=== PATIENT | male | born 1995 | race Hispanic/Latino ===

== ENCOUNTER 2022-07-06 20:06 | Inpatient (IN) | payer OTHER ==
[~2022-07-06 20:06] MED LIST: Iopamidol-370 76% 500 ML MDV (1 ML CHARGE) ONE
[2022-07-06] MEDS ORDERED: Morphine 4 MG/ML VIAL ONE (20:20)
[2022-07-06] MEDS ORDERED: Boostrix 0.5 ML (Tdap) VIAL (>/=7 yrs of age) ONE (20:20)
[2022-07-06] MEDS ORDERED: CEFAZOLIN 2 GM VIAL ONE (20:20)
[2022-07-06 20:31] LABS: #Basophils 0.1 thou/uL (0.0-0.2); #Eosinphils 0.2 thou/uL (0.0-0.7); #Lymphocytes 5.1 thou/uL (1.20-3.40); #Monocytes 0.6 thou/uL (0.11-0.59); #Neutrophils 4.7 thou/uL (1.40-6.50); %Basophils 0.7 % (0.0-1.0); %Eosinophils 1.5 % (0.0-10.0); %Monocytes 5.6 % (0.0-10.0); %Neutrophils 44.2 % (42.0-75.0); Hemoglobin 15.3 g/dL (14.0-18.0); Mean Corpuscular HGB CONC 35.2 g/dL (32.0-36.0); Mean Corpuscular Hemoglobin 32.9 pg (27.0-31.0); Mean Corpuscular Volume 93.7 fl (78.0-98.0); Mean Platelet Volume 6.9 fL (7.4-10.4); Platelet Count 275 10x3/uL (130-400); RBC Distribution Width 11.1 % (11.5-14.5); Red Blood Cell (RBC) Count 4.66 mill/uL (4.70-6.10); White Blood Cell (WBC) Count 10.6 10x3/uL (4.8-10.8)
[2022-07-06 20:38] LABS: Prothrombin Time 13.3 sec (12.0-14.7)
[2022-07-06 20:48] LABS: ALT (SGPT) 38 U/L (8-55); AST (SGOT) 58 U/L (5-34); Acetaminophen Less than 10.0 mcg/mL (10.0-30.0); Albumin 4.5 g/dL (3.5-5.0); Alcohol Less than 10 mg/dL (Less than 10); Alkaline Phosphatase 79 U/L (40-110); Anion Gap 17 mmol/L (10-20); BUN (Urea Nitrogen) 18 mg/dL (8.9-20.6); Bilirubin, Total 0.3 mg/dL (0.2-1.2); Calc. Creatinine Clearance 0 mL/min (70-130); Carbon Dioxide 21 mmol/L (22-29); Chloride 104 mmol/L (98-107); Estimated GFR 89; Globulin 2.4 g/dL (2.4-3.5); Glucose 144 mg/dL (70-105); Lipase 23 U/L (8-78); Potassium 3.8 mmol/L (3.5-5.1); Protein, Total 6.9 g/dL (6.0-8.3); Salicylate Less than 8.0 mg/dL (15.0-30.0); Sodium 138 mmol/L (136-145)
[2022-07-06] MEDS ORDERED: Morphine 2 MG/ML VIAL ONE (22:22)
[2022-07-06] MEDS ORDERED: Dextrose 50% Abboject 50 ML SYRINGE SLOW IVP PRN (23:14)
[2022-07-06] MEDS ORDERED: TETANUS, DIPHTHERIA TOX,ADULT (TDVAX) 0.5 ML VIAL IM ONE (23:14)
[2022-07-06] MEDS ORDERED: Morphine 2 MG/ML VIAL SLOW IVP PRN (23:14)
[2022-07-06] MEDS ORDERED: Ondansetron ODT 4 MG TAB PO PRN (23:14)
[2022-07-06] MEDS ORDERED: Dextrose 5% in Water 1,000 ML IV PRN (23:14)
[2022-07-06] MEDS ORDERED: Ipratropium/Albuterol 3 ML NEB NEB PRN (23:14)
[2022-07-06] MEDS ORDERED: Ondansetron PF 4 MG/2 ML Vial IVP PRN (23:14)
[2022-07-06] MEDS ORDERED: Sodium Chloride 0.9% 1,000 ML IV SCH (23:15)
[2022-07-07] MEDS: Morphine 4 MG/ML VIAL SLOW IVP PRN ×2 (00:08→03:09)
[2022-07-07] MEDS: traMADol HCl 50 MG TAB PO SCH ×4 (00:12→17:16)
[2022-07-07] MEDS: Acetaminophen 500 MG TAB PO SCH ×4 (00:12→17:17)
[2022-07-07] MEDS: Cyclobenzaprine 10 MG TAB PO PRN ×3 (01:28→21:36)
[2022-07-07 03:50] VITALS: BMI 26.2
[2022-07-07 06:57] LABS: #Lymphocytes 1.1 thou/uL (1.20-3.40); #Neutrophils 11.9 thou/uL (1.40-6.50); %Basophils 0.1 % (0.0-1.0); %Eosinophils 0.2 % (0.0-10.0); %Monocytes 6.9 % (0.0-10.0); %Neutrophils 84.8 % (42.0-75.0); Hemoglobin 13.1 g/dL (14.0-18.0); Mean Corpuscular HGB CONC 35.6 g/dL (32.0-36.0); Mean Corpuscular Hemoglobin 33.3 pg (27.0-31.0); Mean Corpuscular Volume 93.6 fl (78.0-98.0); Mean Platelet Volume 6.9 fL (7.4-10.4); Platelet Count 213 10x3/uL (130-400); Red Blood Cell (RBC) Count 3.93 mill/uL (4.70-6.10)
[2022-07-07 07:12] LABS: Phosphorus 4.6 mg/dL (2.3-4.7)
[2022-07-07 07:15] LABS: Anion Gap 17 mmol/L (10-20); BUN (Urea Nitrogen) 15 mg/dL (8.9-20.6); Calc. Creatinine Clearance 121 mL/min (70-130); Calcium 8.5 mg/dL (7.8-10.44); Carbon Dioxide 20 mmol/L (22-29); Chloride 104 mmol/L (98-107); Estimated GFR 100; Glucose 168 mg/dL (70-105); Magnesium 1.6 mg/dL (1.6-2.6); Potassium 4.7 mmol/L (3.5-5.1); Sodium 136 mmol/L (136-145)
[2022-07-07] MEDS: Bacitracin 1 PK TOP SCH ×2 (10:12→21:36)
[2022-07-07] MEDS: Famotidine/PF 20 mg/2ml Vial SLOW IVP SCH ×2 (10:46→21:36)
[2022-07-07] MEDS: Polyethylene Glycol 3350 17 GM Packet PO SCH (10:49)
[2022-07-07] MEDS: traMADol HCl 50 MG TAB PO PRN (21:35)
[2022-07-08] MEDS: traMADol HCl 50 MG TAB PO SCH ×2 (00:44→05:09)
[2022-07-08] MEDS: Acetaminophen 500 MG TAB PO SCH ×2 (00:44→05:10)
[2022-07-08] MEDS ORDERED: hydrALAZINE 20 MG/ML VIAL SLOW IVP SCH (01:30)
[2022-07-08 07:18] LABS: #Lymphocytes 1.8 thou/uL (1.20-3.40); #Monocytes 0.6 thou/uL (0.11-0.59); #Neutrophils 5.8 thou/uL (1.40-6.50); %Basophils 0.4 % (0.0-1.0); %Eosinophils 0.6 % (0.0-10.0); %Monocytes 7.5 % (0.0-10.0); %Neutrophils 69.6 % (42.0-75.0); Hemoglobin 10.2 g/dL (14.0-18.0); Mean Corpuscular HGB CONC 35.5 g/dL (32.0-36.0); Mean Corpuscular Hemoglobin 33.5 pg (27.0-31.0); Mean Corpuscular Volume 94.2 fl (78.0-98.0); Mean Platelet Volume 7.1 fL (7.4-10.4); Platelet Count 170 10x3/uL (130-400); RBC Distribution Width 10.9 % (11.5-14.5); Red Blood Cell (RBC) Count 3.06 mill/uL (4.70-6.10); White Blood Cell (WBC) Count 8.3 10x3/uL (4.8-10.8)
[2022-07-08 08:10] LABS: Anion Gap 13 mmol/L (10-20); BUN (Urea Nitrogen) 14 mg/dL (8.9-20.6); Calc. Creatinine Clearance 126 mL/min (70-130); Calcium 8.6 mg/dL (7.8-10.44); Carbon Dioxide 24 mmol/L (22-29); Chloride 101 mmol/L (98-107); Estimated GFR 105; Glucose 124 mg/dL (70-105); Magnesium 1.9 mg/dL (1.6-2.6); Phosphorus 2.8 mg/dL (2.3-4.7); Sodium 134 mmol/L (136-145)
[2022-07-08] MEDS: Bacitracin 1 PK TOP SCH ×2 (09:00→21:02)
[2022-07-08] MEDS: Famotidine/PF 20 mg/2ml Vial SLOW IVP SCH ×2 (09:01→21:03)
[2022-07-08] MEDS: Polyethylene Glycol 3350 17 GM Packet PO SCH (09:01)
[2022-07-08] MEDS: Cyclobenzaprine 10 MG TAB PO PRN (09:11)
[2022-07-08] MEDS: traMADol HCl 50 MG TAB PO PRN (09:12)
[2022-07-08] MEDS ORDERED: Gabapentin 100 MG CAP PO SCH (09:15)
[2022-07-08] MEDS ORDERED: Gabapentin 300 MG CAP PO SCH (09:15)
[2022-07-08] MEDS: Acetaminophen/Codeine 30-300mg Tablet PO SCH ×2 (11:55→18:20)
[2022-07-08] MEDS: Acetaminophen 325 MG TAB PO SCH ×2 (11:56→18:20)
[2022-07-08] MEDS ORDERED: traMADol HCl 50 MG TAB PO SCH (12:00)
[2022-07-08] MEDS: Gabapentin 300 MG CAP PO SCH ×2 (14:33→21:02)
[2022-07-09] MEDS: Acetaminophen 325 MG TAB PO SCH ×5 (00:14→23:48)
[2022-07-09] MEDS: Acetaminophen/Codeine 30-300mg Tablet PO SCH ×5 (00:14→23:49)
[2022-07-09 06:57] LABS: #Eosinphils 0.1 thou/uL (0.0-0.7); #Lymphocytes 1.8 thou/uL (1.20-3.40); #Monocytes 0.6 thou/uL (0.11-0.59); #Neutrophils 5.1 thou/uL (1.40-6.50); %Basophils 0.2 % (0.0-1.0); %Eosinophils 1.5 % (0.0-10.0); %Lymphocytes 23.4 % (21.0-51.0); %Neutrophils 66.9 % (42.0-75.0); Hemoglobin 8.5 g/dL (14.0-18.0); Mean Corpuscular HGB CONC 36.6 g/dL (32.0-36.0); Mean Corpuscular Hemoglobin 34.2 pg (27.0-31.0); Mean Corpuscular Volume 93.6 fl (78.0-98.0); Mean Platelet Volume 6.5 fL (7.4-10.4); Platelet Count 147 10x3/uL (130-400); Red Blood Cell (RBC) Count 2.49 mill/uL (4.70-6.10); White Blood Cell (WBC) Count 7.6 10x3/uL (4.8-10.8)
[2022-07-09 07:08] LABS: Anion Gap 11 mmol/L (10-20); BUN (Urea Nitrogen) 11 mg/dL (8.9-20.6); Calc. Creatinine Clearance 141 mL/min (70-130); Calcium 8.4 mg/dL (7.8-10.44); Carbon Dioxide 28 mmol/L (22-29); Chloride 99 mmol/L (98-107); Estimated GFR 120; Glucose 114 mg/dL (70-105); Magnesium 1.9 mg/dL (1.6-2.6); Potassium 3.9 mmol/L (3.5-5.1); Sodium 134 mmol/L (136-145)
[2022-07-09] MEDS: Famotidine/PF 20 mg/2ml Vial SLOW IVP SCH ×2 (08:39→21:11)
[2022-07-09] MEDS: Polyethylene Glycol 3350 17 GM Packet PO SCH (08:40)
[2022-07-09] MEDS: Gabapentin 300 MG CAP PO SCH ×3 (08:40→21:12)
[2022-07-09] MEDS ORDERED: Scopolamine 1.5 mg/72 hour Patch TD SCH (13:45)
[2022-07-09] MEDS: Bacitracin 1 PK TOP SCH ×2 (14:51→21:12)
[2022-07-10] MEDS: Cyclobenzaprine 10 MG TAB PO PRN ×2 (04:57→20:23)
[2022-07-10] MEDS: Acetaminophen/Codeine 30-300mg Tablet PO PRN ×2 (04:57→20:23)
[2022-07-10] MEDS: Acetaminophen 325 MG TAB PO SCH ×3 (05:49→17:58)
[2022-07-10] MEDS: Acetaminophen/Codeine 30-300mg Tablet PO SCH ×3 (05:50→17:57)
[2022-07-10 06:38] LABS: #Eosinphils 0.2 thou/uL (0.0-0.7); #Lymphocytes 1.9 thou/uL (1.20-3.40); #Monocytes 0.6 thou/uL (0.11-0.59); #Neutrophils 4.6 thou/uL (1.40-6.50); %Basophils 0.3 % (0.0-1.0); %Eosinophils 2.7 % (0.0-10.0); %Lymphocytes 26.3 % (21.0-51.0); %Monocytes 7.6 % (0.0-10.0); %Neutrophils 63.1 % (42.0-75.0); Hemoglobin 7.6 g/dL (14.0-18.0); Mean Corpuscular HGB CONC 35.7 g/dL (32.0-36.0); Mean Corpuscular Hemoglobin 33.4 pg (27.0-31.0); Mean Corpuscular Volume 93.5 fl (78.0-98.0); Mean Platelet Volume 6.8 fL (7.4-10.4); Platelet Count 201 10x3/uL (130-400); RBC Distribution Width 11.3 % (11.5-14.5); Red Blood Cell (RBC) Count 2.27 mill/uL (4.70-6.10); White Blood Cell (WBC) Count 7.4 10x3/uL (4.8-10.8)
[2022-07-10] MEDS: Famotidine/PF 20 mg/2ml Vial SLOW IVP SCH ×2 (08:55→20:24)
[2022-07-10] MEDS: Gabapentin 300 MG CAP PO SCH ×3 (08:55→20:24)
[2022-07-10] MEDS: Polyethylene Glycol 3350 17 GM Packet PO SCH (08:56)
[2022-07-10] MEDS: Bacitracin 1 PK TOP SCH ×2 (08:56→20:25)
[2022-07-10] MEDS: Senokot S 8.6-50 MG TAB PO SCH ×2 (09:48→20:24)
[2022-07-10] MEDS: Ferrous Sulfate 325 MG TAB PO SCH (16:18)
[2022-07-10] MEDS: Ascorbic Acid 500 mg Chewable Tablet PO SCH (20:24)
[2022-07-11] MEDS: Acetaminophen 325 MG TAB PO SCH ×3 (00:35→12:42)
[2022-07-11] MEDS: Acetaminophen/Codeine 30-300mg Tablet PO SCH ×3 (00:35→12:43)
[2022-07-11 05:34] LABS: Hemoglobin 7.7 g/dL (14.0-18.0); Mean Corpuscular HGB CONC 35.1 g/dL (32.0-36.0); Mean Corpuscular Hemoglobin 33.1 pg (27.0-31.0); Mean Corpuscular Volume 94.2 fl (78.0-98.0); Mean Platelet Volume 6.7 fL (7.4-10.4); Platelet Count 251 10x3/uL (130-400); RBC Distribution Width 11.7 % (11.5-14.5); Red Blood Cell (RBC) Count 2.31 mill/uL (4.70-6.10)
[2022-07-11 05:55] LABS: Band 2 % (5-11); Eosinophils 4 % (0-10); Lymphocytes 25 % (21-51); MDiff Complete? YES; Monocytes 7 % (0-10); Neutrophil 62 % (42-75); Nucleated RBC 1 % (0); Platelet Morphology Comment Appears Adequate; Polychromasia MODERATE = 3-4 cells (100X) (0-2/hpf); White Blood Cell (WBC) Count 8.8 10x3/uL (4.8-10.8)
[2022-07-11 07:47] VITALS: TEMP 98.1
[2022-07-11] MEDS: Gabapentin 300 MG CAP PO SCH (08:54)
[2022-07-11] MEDS: Senokot S 8.6-50 MG TAB PO SCH (08:54)
[2022-07-11] MEDS: Ascorbic Acid 500 mg Chewable Tablet PO SCH (08:54)
[2022-07-11] MEDS: Polyethylene Glycol 3350 17 GM Packet PO SCH (08:54)
[2022-07-11] MEDS: Ferrous Sulfate 325 MG TAB PO SCH (08:54)
[2022-07-11] MEDS: Bacitracin 1 PK TOP SCH (08:55)
[2022-07-11] MEDS: Acetaminophen/Codeine 30-300mg Tablet PO PRN (08:55)
[2022-07-11 11:52] VITALS: BP 144/86
== END 2022-07-11 13:43 | disposition home or self-care (01) | DRG 86 ==
LOC: ERS 20:06 → SURG B 22:32 → OBSVTOIN 07-07 10:24
PROVIDERS: ADMIT Surgery; ATTEND Surgery
DX: S02.19XA Other fracture of base of skull, initial encounter for closed fracture (principal); D62 Acute posthemorrhagic anemia; S12.600A Unspecified displaced fracture of seventh cervical vertebra, initial encounter for closed fracture; S27.322A Contusion of lung, bilateral, initial encounter; S22.029A Unspecified fracture of second thoracic vertebra, initial encounter for closed fracture; S22.039A Unspecified fracture of third thoracic vertebra, initial encounter for closed fracture; S22.049A Unspecified fracture of fourth thoracic vertebra, initial encounter for closed fracture; S22.059A Unspecified fracture of T5-T6 vertebra, initial encounter for closed fracture; S27.0XXA Traumatic pneumothorax, initial encounter; S06.0X9A Concussion with loss of consciousness of unspecified duration, initial encounter; S02.831A Fracture of medial orbital wall, right side, initial encounter for closed fracture; S62.311A Displaced fracture of base of second metacarpal bone, left hand, initial encounter for closed fracture; F17.210 Nicotine dependence, cigarettes, uncomplicated; S42.021A Displaced fracture of shaft of right clavicle, initial encounter for closed fracture; R40.2412 Glasgow coma scale score 13-15, at arrival to emergency department; F12.10 Cannabis abuse, uncomplicated; S40.811A Abrasion of right upper arm, initial encounter; S80.212A Abrasion, left knee, initial encounter; S80.211A Abrasion, right knee, initial encounter; V27.49XA Other motorcycle driver injured in collision with fixed or stationary object in traffic accident, initial encounter; Y92.410 Unspecified street and highway as the place of occurrence of the external cause
CPT/HCPCS: 36415; 70450; 70486; 71045; 71260; 72125; 74177; 80048; 80053; 80307; 83690; 83735; 84100; 84484; 85025; 85610; 90471; 90715; 93005; 96365; 96375; 96376; 97139; G0378; G0390; J0360; J2270; J2272; J2405; J7050; Q9967; S0028